=== PATIENT | female | born 1985 | race Caucasian/White ===

== ENCOUNTER → 2025-05-24 11:26 | Outpatient (REF) | payer OTHER, SELFPAY ==
[2025-05-26 14:01] LABS: Varicella Zoster IgG (VZV) Positive
== END ==
LOC: OHS 11:26
PROVIDERS: ATTENDING PHYSICIAN Nurse Practitioner Family
DX: Z23 Encounter for immunization (principal)
CPT/HCPCS: 36415; 86480; 86787